=== PATIENT | male | born 1995 ===

== ENCOUNTER 2019-04-26 17:00 | Outpatient (CLI) | payer BC | END 2019-04-26 17:01 | disposition home or self-care (01) | LOC: SLEEPLAB 17:00 | PROVIDERS: ATTEND Family Medicine | DX: G47.33 Obstructive sleep apnea (adult) (pediatric) (principal); R53.83 Other fatigue; G47.00 Insomnia, unspecified; R06.83 Snoring | CPT/HCPCS: 95806 ==

== ENCOUNTER 2019-12-10 15:00 | Outpatient (CLI) | payer BC ==
--- NOTE | 2019-12-10 15:43 | RAD ---
RIGHT ANKLE THREE VIEWS: 12/10/19 HISTORY: Right ankle pain. FINDINGS/IMPRESSION: The ankle mortise is maintained. No acute fracture or dislocation is seen. There is a well corticated bony density adjacent to the medial malleolus likely due to remote trauma. POS: [facility]
== END 2019-12-10 15:01 | disposition home or self-care (01) ==
LOC: BICRAD 15:00
PROVIDERS: ATTEND Family Medicine
DX: M25.571 Pain in right ankle and joints of right foot (principal); M85.871 Other specified disorders of bone density and structure, right ankle and foot